=== PATIENT | female | born 1960 ===

== ENCOUNTER 2021-09-23 08:19 | Outpatient (CLI) | payer OTHER ==
[~2021-09-23 08:19] MED LIST: HUMULIN 70/30 V10 ML SQ; HUMULIN R500 U/ML IJ; HYZAAR 100-121 UDTAB PO; SYNTROID; TRICOR145 MG PO
== END 2021-09-23 12:00 | disposition home or self-care (01) ==
LOC: SONOGRAMA 08:19
PROVIDERS: ATTEND Pathology Anatomic Pathology & Clinical Pathology
DX: E07.89 Other specified disorders of thyroid (principal); E04.1 Nontoxic single thyroid nodule; D34 Benign neoplasm of thyroid gland